=== PATIENT | female | born 1980 | race Caucasian/White ===

== ENCOUNTER 2022-02-01 17:27 | Emergency (ER) | payer OTHER | END 2022-02-01 18:35 | disposition left against medical advice (07) | LOC: ER1 17:27 | DX: Z53.21 Procedure and treatment not carried out due to patient leaving prior to being seen by health care provider (principal) ==

== ENCOUNTER → 2022-02-01 | Outpatient (CLI) | payer OTHER ==
[2022-02-01 16:18] LABS: HEMOGLOBIN 11.9 gm/dl (12.3-15.3); RED BLOOD COUNT 3.91 M/UL (4.00-5.10); WHITE BLOOD COUNT 10.6 K/UL (4.5-11.0)
[2022-02-01 16:33] LABS: BUN/CREATININE RATIO 33 (0-10)
[2022-02-02 08:19] LABS: HIV AB/P24 AG SCREEN Non Reactive (Non Reactive)
[2022-02-02 09:19] LABS: VITAMIN D, 25-HYDROXY 21.3 ng/mL (30.0-100.0)
[2022-02-03 20:13] LABS: HBSAG SCREEN Negative (Negative); HCV AB >11.0 (0.0-0.9); HCV LOG10 5.886 (.); HEP A AB, IGM Negative (Negative); HEP B CORE AB, IGM Negative (Negative); HEPATITIS C QUANTITATION 769000 IU/mL (.)
[2022-02-04 12:09] LABS: QUANTIFERON MITOGEN VALUE >10.00 IU/mL (.); QUANTIFERON-TB GOLD PLUS Negative (Negative)
== END ==
LOC: LAB 14:32
PROVIDERS: Obstetrics & Gynecology
DX: F15.20 Other stimulant dependence, uncomplicated (principal)
CPT/HCPCS: 36415; 80053; 80061; 80074; 82140; 82607; 82728; 83036; 83540; 83735; 84439; 84443; 85027; 87389

== ENCOUNTER 2022-02-02 08:53 | Emergency (ER) | payer OTHER ==
[2022-02-02 09:39] LABS: HEMOGLOBIN 11.3 gm/dl (12.3-15.3); RED BLOOD COUNT 3.75 M/UL (4.00-5.10); WHITE BLOOD COUNT 12.9 K/UL (4.5-11.0)
[2022-02-02 10:05] LABS: BUN/CREATININE RATIO 28 (0-10)
== END 2022-02-02 11:30 | disposition home or self-care (01) ==
LOC: ER1 08:53
PROVIDERS: Emergency Medicine
DX: E87.5 Hyperkalemia (principal); F17.200 Nicotine dependence, unspecified, uncomplicated; Z90.710 Acquired absence of both cervix and uterus; Z90.89 Acquired absence of other organs; Z79.899 Other long term (current) drug therapy
CPT/HCPCS: 80053; 82550; 82553; 84484; 85025; 99284